=== PATIENT | female | born 1980 | race Caucasian/White ===

== ENCOUNTER 2020-01-12 07:36 | Outpatient (REF) | payer OTHER, SELFPAY | END 2020-01-12 07:37 | disposition home or self-care (01) | LOC: HO.LAB 07:36 | PROVIDERS: Visit Provider Internal Medicine | DX: Z20.828 Contact with and (suspected) exposure to other viral communicable diseases (principal) | CPT/HCPCS: C9803; U0003 ==

== ENCOUNTER 2022-01-04 15:19 | Outpatient (REF) | payer OTHER, SELFPAY ==
[2022-01-05 06:03] LABS: CT PCR NOT DETECTED (Not Detect.); NG PCR NOT DETECTED (Not Detect.)
[2022-01-05 12:05] LABS: BV Int Neg Control Negative (Negative)
[2022-01-05 12:06] LABS: BV Int Pos Control Positive (Positive)
[2022-01-13 04:57] LABS: HPV mRNA E6/E7 rflx Not Detected (Not Detected)
== END 2022-01-04 15:20 | disposition home or self-care (01) ==
LOC: HO.LNP 15:19
PROVIDERS: Visit Provider Advanced Practice Midwife
DX: Z01.419 Encounter for gynecological examination (general) (routine) without abnormal findings (principal); Z11.51 Encounter for screening for human papillomavirus (HPV)
CPT/HCPCS: 87480; 87491; 87510; 87591; 87624; 87660; 88142

== ENCOUNTER 2022-01-21 13:00 | Outpatient (REF) | payer OTHER, SELFPAY ==
--- NOTE | ~2022-01-21 | MM_ITS ---
EXAMINATION: MM SCREENING DIGITAL BREAST TOMOSYNTHESIS, BILATERAL CLINICAL INFORMATION: Screening. Asymptomatic. The lifetime risk of breast cancer based on the Tyrer-Cuzick Model is 13.8%. COMPARISON: Mammography: None TECHNIQUE: Digital breast tomosynthesis is performed in both the craniocaudal and mediolateral oblique views along with computer-aided detection (CAD). Synthesized 2D images are generated from the tomosynthesis. FINDINGS: The breasts are heterogeneously dense, which may obscure small masses (ACR BI-RADS breast composition Category c). There are no significant masses, abnormal calcifications, or other abnormalities. MM/MM tomosynthesis screening BI IMPRESSION: No mammographic evidence of malignancy. ASSESSMENT: BI-RADS 1: Negative RECOMMENDATION: Routine annual mammography screening. This patient's information was entered into a reminder system with a target due date for their next mammogram.
== END 2022-01-21 13:01 | disposition home or self-care (01) ==
LOC: HO.MAMMO 13:00
PROVIDERS: Visit Provider Advanced Practice Midwife
DX: Z12.31 Encounter for screening mammogram for malignant neoplasm of breast (principal)
CPT/HCPCS: 77063; 77067

== ENCOUNTER 2022-02-09 16:11 | Outpatient (REF) | payer OTHER, SELFPAY ==
--- NOTE | ~2022-02-09 | US_ITS ---
EXAMINATION: US PELVIC AND TRANSVAGINAL CLINICAL INFORMATION: Excessive and frequent menstruation. COMPARISON: None TECHNIQUE: Ultrasound of the pelvis is performed using both transabdominal and transvaginal transducers along with Doppler. Transvaginal imaging is performed due to inadequate visualization transabdominally. FINDINGS: UTERUS: The uterus is anteverted and anteflexed measuring 11.0 x 4.3 x 8.1 cm for a volume of 200 mL. Two fundal fibroids are present measuring 4.4 x 5.2 x 5.3 cm and 1.1 x 0.7 x 1.0 cm. The double wall endometrial thickness is 0.7 mm. Cervix was not measured by the household refrigeration mechanic. Multiple nabothian cysts are present within the cervix. ADNEXA: Both ovaries are visualized. There is normal color flow to the adnexa. There is no ovarian torsion. There is no pelvic ascites or fluid collection. Right ovary measures 3.8 x 2.3 x 2.8 cm for a volume of 12.8 mL with multiple follicles seen. Left ovary measures 2.8 x 1.8 x 2.1 cm for a volume of 5.5 mL. US/US pelvic and transvaginal IMPRESSION: Uterine fibroids.
== END 2022-02-09 16:12 | disposition home or self-care (01) ==
LOC: HO.US 16:11
PROVIDERS: Visit Provider Advanced Practice Midwife
DX: N92.0 Excessive and frequent menstruation with regular cycle (principal)
CPT/HCPCS: 76830; 76856

== ENCOUNTER → 2022-02-24 14:58 | Outpatient (BNVA) | payer OTHER, SELFPAY | PROVIDERS: PCP Internal Medicine; Visit Provider Advanced Practice Midwife | DX: Z13.89 Encounter for screening for other disorder (principal) ==

== ENCOUNTER 2022-03-15 10:30 | Outpatient (REF) | payer OTHER, SELFPAY ==
[2022-03-15 10:51] LABS: Hematocrit 33.4 % (37.0-47.0); Hemoglobin 9.9 g/dl (12.0-16.0); Mean Corpuscular HGB Conc 29.6 g/dl (31.0-35.0); Mean Corpuscular Hemoglobin 21.3 pg (27.0-33.0); Mean Platelet Volume 10.5 fL (9.4-12.3); Platelet Count 381 X10*3/uL (160-400); Red Blood Count 4.64 X10*6/uL (4.20-5.50); Red Cell Distribution Width 17.2 % (11.0-16.0); White Blood Count 5.6 X10*3/uL (4.8-10.8)
[2022-03-15 11:45] LABS: Thyroid Stimulating Hormone 0.33 uIU/mL (0.32-4.0)
== END 2022-03-15 10:31 | disposition home or self-care (01) ==
LOC: HO.LAB 10:30
PROVIDERS: PCP Internal Medicine; Visit Provider Advanced Practice Midwife
DX: N92.0 Excessive and frequent menstruation with regular cycle (principal)
CPT/HCPCS: 36415; 84443; 85027

== ENCOUNTER 2023-01-27 07:55 | Outpatient (REF) | payer OTHER, SELFPAY | END 2023-01-27 07:56 | disposition home or self-care (01) | LOC: HO.MAMMO 07:55 | PROVIDERS: PCP Internal Medicine; Visit Provider Internal Medicine | DX: Z12.31 Encounter for screening mammogram for malignant neoplasm of breast (principal) | CPT/HCPCS: 77063; 77067 ==

== ENCOUNTER → 2023-01-27 08:00 | Outpatient (BNV) | payer OTHER, SELFPAY | PROVIDERS: PCP Internal Medicine; Visit Provider Radiology Diagnostic Radiology | DX: Z12.31 Encounter for screening mammogram for malignant neoplasm of breast (principal) | CPT/HCPCS: 77063; 77067 ==

== ENCOUNTER 2023-06-21 11:04 | Outpatient (REF) | payer OTHER, SELFPAY ==
--- NOTE | ~2023-06-21 | US_ITS ---
EXAMINATION: US PELVIS CLINICAL INFORMATION: Excessive/frequent menstruation with irregular cycle, fibroids LMP: 4 days ago COMPARISON: Pelvic ultrasound 02/09/2022 TECHNIQUE: Ultrasound of the pelvis is performed using both transabdominal and transvaginal transducers along with Doppler. Transvaginal imaging is performed due to inadequate visualization transabdominally. FINDINGS: Uterus: The uterus is anteverted and measures 11.3 x 8.3 x 9.1 cm. There are 3 fibroids: 2.1 x 2.8 x 2.0 cm exophytic fundal, new 9.0 x 6.4 x 8.5 cm, previously 4.4 x 5.2 x 5.3 cm, posterior left, impinges on the endometrial cavity. 1.1 x 1.2 x 1.1 cm subserosal fibroid in the fundus previously measured 1.1 x 0.7 x 1.0 cm. The endometrial thickness is 1.3 cm. There is limited visualization of the endometrial stripe due to the large fibroids. Trace fluid is seen within the endometrial cavity. The patient is currently menstruating. Adnexa: Both ovaries are visualized. There is normal color flow to the adnexa. There is no ovarian torsion. There is no pelvic ascites or fluid collection. Right ovary measures 3.5 x 2.3 x 2.1 cm. Volume 8.9 mL. Left ovary measures 2.8 x 1.9 x 2.0 cm. Volume 8.4 mL US/US pelvic and transvaginal IMPRESSION: 1. 3 uterine fibroids, one of which is new. 2. Interval enlargement of now 9.0 cm posterior left fibroid which impinges on the endometrial cavity. 3. Normal ovaries.
[2023-06-21 12:07] LABS: Hematocrit 34.9 % (37.0-47.0); Hemoglobin 11.1 g/dl (12.0-16.0); Mean Corpuscular HGB Conc 31.8 g/dl (31.0-35.0); Mean Corpuscular Hemoglobin 26.3 pg (27.0-33.0); Mean Corpuscular Volume 82.7 fL (80.0-98.0); Platelet Count 309 X10*3/uL (160-400); Red Blood Count 4.22 X10*6/uL (4.20-5.50); Red Cell Distribution Width 19.4 % (11.0-16.0); White Blood Count 5.1 X10*3/uL (4.8-10.8)
== END 2023-06-21 11:05 | disposition home or self-care (01) ==
LOC: HO.US 11:04
PROVIDERS: Visit Provider Obstetrics & Gynecology
DX: N93.9 Abnormal uterine and vaginal bleeding, unspecified (principal); N92.0 Excessive and frequent menstruation with regular cycle; D25.0 Submucous leiomyoma of uterus; D25.2 Subserosal leiomyoma of uterus
CPT/HCPCS: 36415; 58100; 76830; 76856; 81025; 85027

== ENCOUNTER 2023-06-21 12:55 | Outpatient (AMB) | payer OTHER, SELFPAY ==
--- NOTE | 2023-06-21 13:03 | MHC.OFFVIS ---
Vital Signs 06/21/23 13:04 Height 5 ft 3 in Weight 185 lb BMI 32.8 BP 114/62 Intake Visit Reasons: heavy menses Wire Spooler Required: No Information Interpreted: non-clinical & clinical Credit Analysis Manager: Credit Analysis Manager Present (Eveline) Allergies No Known Allergies Allergy (Verified 06/21/23 13:04) Is last menstrual period known: Yes Last menstrual period: 06/18/23 Post menopausal: No HPI Comments Details: Presenting complaining of 2 year history of heavy menstrual cycles associated with passage of blood clots and pelvic cramping. The patient gives history of iron transfusion twice at her loan officer with no improvement of her H&H. H&H done today was 11.1/34.9 Pelvic ultrasound done today showed the following: Uterus: The uterus is anteverted and measures 11.3 x 8.3 x 9.1 cm. There are 3 fibroids: 2.1 x 2.8 x 2.0 cm exophytic fundal, new 9.0 x 6.4 x 8.5 cm, previously 4.4 x 5.2 x 5.3 cm, posterior left, impinges on the endometrial cavity. 1.1 x 1.2 x 1.1 cm subserosal fibroid in the fundus previously measured 1.1 x 0.7 x 1.0 cm. The endometrial thickness is 1.3 cm. There is limited visualization of the endometrial stripe due to the large fibroids. Trace fluid is seen within the endometrial cavity. The patient is currently menstruating. Adnexa: Both ovaries are visualized. There is normal color flow to the adnexa. There is no ovarian torsion. There is no pelvic ascites or fluid collection. Right ovary measures 3.5 x 2.3 x 2.1 cm. Volume 8.9 mL. Left ovary measures 2.8 x 1.9 x 2.0 cm. Volume 8.4 mL Last mammogram done in 02/05 was BI-RADS 1 Last co testing done 01/05 was negative PFSH Medical History Asthma Family History Father Cancer Female Reproductive History Menstrual Age of Menarche: 14 Date of last menstrual period: 06/18/23 control method: none Date of last pap smear: 01/05/22 (negative) History of abnormal pap smear: No Review of Systems Const All systems reviewed & are unremarkable except as noted in HPI and below Physical Exam Vital Signs: Last Vital Signs BP 114/62 06/21/23 13:04 BMI result Body Mass Index 32.8 General: Yes no CVA tenderness External Female Exam: normal external appearance and normal appearance of the urethra Speculum Exam - Vagina: normal appearance of the vagina, normal palpation, no lesions and no masses Speculum Exam - Cervix: normal appearance of the cervix, normal palpation, no lesions, no masses and nontender Bimanual exam- vagina & uterus: normal bimanual exam, normal palpation, uterine size normal, normal palpation, No Cervical tenderness present, non-tender and enlarged Bimanual Exam- Adnexa, other: normal adnexae Back/Spine/Pelvis Back: no CVA tenderness Office Procedures Endometrial Biopsy Details: The patient was counseled regarding the indication and benefits of endometrial sampling to rule out endometrial pathology including not limited to endometrial hyperplasia or endometrial cancer and others; The alternatives (Either do nothing vs. hysteroscopy D&C) & the risks were discussed with the patient including but not limited: pain, uterine perforation, bleeding, infection, possible injury to bladder, bowel, ureter, possible need for blood transfusion with all its possible risks. The patient verbalized understanding all questions answered and signed consent. Urine test done in the office was negative The patient was placed into the dorsal lithotomy position; a speculum was inserted in the vagina. Using aseptic technique for the procedure, the cervix was cleansed with Betadine. The anterior lip of the cervix was grasped with a single tooth tenaculum. The uterus was sounded to 7 cm with a 4 mm Pipelle was used. Tissues samples were obtained and placed in formalin, in a patient labeled container and sent to the pathology department. At the end of the procedure, there was minimal bleeding noted The patient tolerated the procedure well and was discharged in good condition with the following instructions: Nothing in the vagina until the bleeding stops. No sex until the bleeding stops, to call if any of the following occurs: fever (>100.4), flu-like symptoms, abdominal pain, heavy bleeding, four smelling vaginal discharge. The patient was instructed to schedule a Follow up appointment in 2 weeks to discuss pathology results of the biopsy and treatment options. This note was generated with a voice recognition program. Some errors may have been overlooked during the review of this note. Sometimes these errors may affect the content or meaning of a given sentence. [id number] Biopsy Results AMB Test Urine AMB Test Urine Negative Last Edit by RIKY Lowry on 06/21/23 13:42 Assessment & Plan Assessment & Plan (1) Abnormal uterine bleeding: Comment: With anemia Code(s): N93.9 - Abnormal uterine and vaginal bleeding, unspecified Category: Medical Plan: Discussed with the patient the results of her H&H 11.1/34.9 Pelvic ultrasound done today GC and chlamydia taken TSH, HCG, prolactin, ordered. Discussed with the patient the different causes of abnormal bleeding including thyroid disorders, uterine and ovarian pathology, endometrial hyperplasia, carcinoma and other potential causes. Discussed with the patient the work up including CBC (to r/o anemia), TSH, prolactin, pelvic Ultrasound, endometrial biopsy to r/o endometrial pathology. EMB done, see procedure note All questions answered and the patient verbalized understanding. Instructions given the patient to schedule a 2 week follow-up appointment to discuss options of treatment (2) Fibroid uterus: Comment: Rapidly enlarging Largest is Submucosal 9 cm in size Code(s): D25.9 - Leiomyoma of uterus, unspecified Category: Medical Plan: Discussed with the patient the results of the ultrasound and the findings showing multiple myomas in 1 myoma seems to be rapidly enlarging in size, increased from 5.3-9 cm in around 14-15 months. Discussed with the patient risk of myosarcoma and symptoms that are caused by myomas including but not limited to pelvic pain, pressure symptoms, abnormal uterine bleeding. In addition discussed with the patient options of treatment for myomas including: Serial ultrasounds periodically to follow-up on the size of the myoma while targeting the treatment against fibroids related symptoms ( control pills, Mirena IUD, progesterone treatment, GnRH agonist/antagonist, uterine artery embolization or endometrial ablation) versus surgical treatment including hysterectomy . All pros and cons, risks and benefits of all options were discussed with the patient. The patient understands that delay in surgical treatment in case of myosarcoma can affect her prognosis, after further discussion, the patient seemed leaning more towards surgical management but will make her decision after discussing it further next visit after EMB results is out. Orders: Orders CT NG by PCR Today N92.0 - Excessive and frequent menstruation with regular cycle Surgical Today N92.0 - Excessive and frequent menstruation with regular cycle AMB Endometrial Biopsy Today N93.9 - Abnormal uterine and vaginal bleeding, unspecified AMB HCG Urine Test Today Z32.02 - Encounter for test, result negative TSH reflex Free T4 Today N93.9 - Abnormal uterine and vaginal bleeding, unspecified Prolactin Today N93.9 - Abnormal uterine and vaginal bleeding, unspecified HCG Quantitative Today N93.9 - Abnormal uterine and vaginal bleeding, unspecified Coding Level of Care Code Est Pt Level 3 (59136) Diagnoses Abnormal uterine bleeding N93.9 Fibroid uterus D25.9 CPT Codes Endometrial Biopsy - CPT: 31067-[id number] Biopsy ([id number])
[2023-06-21 13:04] VITALS: BP 114/62; BMI 32.8
== END 2023-06-21 13:43 | disposition home or self-care (01) ==
PROVIDERS: PCP Internal Medicine; Visit Provider Obstetrics & Gynecology
DX: D25.9 Leiomyoma of uterus, unspecified (principal); N93.9 Abnormal uterine and vaginal bleeding, unspecified; Z32.02 Encounter for pregnancy test, result negative
CPT/HCPCS: 58100; 99213

== ENCOUNTER 2023-06-21 13:40 | Outpatient (REF) | payer OTHER, SELFPAY ==
[2023-06-22 06:36] LABS: CT PCR NOT DETECTED (Not Detect.); NG PCR NOT DETECTED (Not Detect.)
== END 2023-06-21 13:41 | disposition home or self-care (01) ==
LOC: HO.LNP 13:40
PROVIDERS: Visit Provider Obstetrics & Gynecology
DX: N92.0 Excessive and frequent menstruation with regular cycle (principal)
CPT/HCPCS: 0353U; 88305

== ENCOUNTER 2023-06-27 08:49 | Outpatient (AMB) | payer OTHER, SELFPAY ==
--- NOTE | 2023-06-27 09:04 | A.OFFVIS_ITS ---
Vital Signs 06/27/23 09:08 Height 5 ft 3 in Weight 183 lb BMI 32.4 BP 118/74 Intake Visit Reasons: EMB follow up Poultryman Required: No Information Interpreted: non-clinical & clinical Accompanied by: Self / Same As Patient Allergies No Known Allergies Allergy (Verified 06/27/23 09:09) HPI Comments Details: Presenting for follow-up after endometrial biopsy regarding her 2 year history of heavy menstrual cycles associated with passage of blood clots and pelvic cramping. The patient the patient received iron transfusion twice at her parent trainer with no improvement of her H&H. H&H done today was 11.1/34.9 Pelvic ultrasound done today showed the following: Uterus: The uterus is anteverted and measures 11.3 x 8.3 x 9.1 cm. There are 3 fibroids: 2.1 x 2.8 x 2.0 cm exophytic fundal, new 9.0 x 6.4 x 8.5 cm, previously 4.4 x 5.2 x 5.3 cm, posterior left, impinges on the endometrial cavity. 1.1 x 1.2 x 1.1 cm subserosal fibroid in the fundus previously measured 1.1 x 0.7 x 1.0 cm. The endometrial thickness is 1.3 cm. There is limited visualization of the endometrial stripe due to the large fibroids. Trace fluid is seen within the endometrial cavity. The patient is currently menstruating. Adnexa: Both ovaries are visualized. There is normal color flow to the adnexa. There is no ovarian torsion. There is no pelvic ascites or fluid collection. Right ovary measures 3.5 x 2.3 x 2.1 cm. Volume 8.9 mL. Left ovary measures 2.8 x 1.9 x 2.0 cm. Volume 8.4 mL Endometrial biopsy pathology report showed the following: Endometrium, biopsy: - Fragments of benign endometrium with lytic changes. - Inflamed endocervical and cervical transformation zone mucosa with reactive changes. - No atypia identified. Last mammogram done in 02/05 was BI-RADS 1 Last co testing done 01/05 was negative PFSH Medical History Asthma Family History Father Cancer Female Reproductive History Menstrual Age of Menarche: 14 Review of Systems Const All systems reviewed & are unremarkable except as noted in HPI and below Reports as per HPI and Reports no additional complaints GI Reports no additional complaints Reports no additional complaints Physical Exam Vital Signs: Last Vital Signs BP 118/74 06/27/23 09:08 BMI result Body Mass Index 32.4 Assessment & Plan Assessment & Plan (1) Abnormal uterine bleeding: Comment: With anemia Code(s): N93.9 - Abnormal uterine and vaginal bleeding, unspecified Category: Medical Plan: See discussion below (2) Fibroid uterus: Comment: Rapidly enlarging Largest is Submucosal 9 cm in size Code(s): D25.9 - Leiomyoma of uterus, unspecified Category: Medical Plan: Discussed with the patient the results of the ultrasound and the size of the myomas. Discussed with the patient risk of myosarcoma and symptoms that are caused by myomas including but not limited to pelvic pain, pressure symptoms, abnormal uterine bleeding. In addition discussed with the patient options of treatment for myomas including: Serial ultrasounds periodically to follow-up on the size of the myoma while targeting the treatment against fibroids related symptoms ( control pills, Mirena IUD, progesterone treatment, GnRH agonist/antagonist, uterine artery embolization or endometrial ablation) versus surgical treatment including hysterectomy . Discussed with the patient a lot of the above-mentioned medical/minimally invasive treatment options are not appropriate given the large submucosal myoma . All pros and cons, risks and benefits of all options were discussed with the patient. The patient decided to proceed with a hysterectomy. Discussed with the patient the different types of hysterectomies including, vaginal, laparoscopic assisted vaginal, robotic assisted laparoscopic,& abdominal with bilateral salpingectomies. All pros, cons, r/b of each approach were discussed the patient including evidence that morbidity is less and recovery is shorter with minimally invasive approaches to hysterectomy. Explained to the patient she might not be a good candidate for minimally invasive hysterectomy given the size of the fibroid. In addition, discussed with the patient that the finding of large and rapidly growing uterine myoma of 9 cm in size and that the lack of availability of Gyne Onc service at [facility] in case it is needed intraoperatively for any suspicious findings. Furthermore, explained to the patient the lack of availability of the robot [employer] robot and/or minimally invasive publicity expert specialist at [facility]. For all the above reasons, I recommended referral to a tertiary care center, where more resources /higher level [facility] are available[facility]. All questions answered, the patient verbalized understanding and agreed with the plan. Instructed the patient to call our office back in case a referral appointment is not scheduled, missed or canceled so that we will assist on rescheduling another appointment, the patient verbalized understanding agreed with the plan. Coding Level of Care Code Est Pt Level 3 (14352) Diagnoses Abnormal uterine bleeding N93.9 Fibroid uterus D25.9
[2023-06-27 09:08] VITALS: BP 118/74; BMI 32.4
== END 2023-06-27 09:42 | disposition home or self-care (01) ==
PROVIDERS: PCP Internal Medicine; Visit Provider Obstetrics & Gynecology
DX: N93.9 Abnormal uterine and vaginal bleeding, unspecified (principal); D25.9 Leiomyoma of uterus, unspecified
CPT/HCPCS: 99213

== ENCOUNTER → 2023-06-27 08:49 | Outpatient (BNVA) | payer OTHER, SELFPAY | PROVIDERS: PCP Internal Medicine; Visit Provider Obstetrics & Gynecology ==

== ENCOUNTER 2024-02-16 15:24 | Outpatient (REF) | payer OTHER, SELFPAY ==
--- NOTE | ~2024-02-16 | MM_ITS ---
EXAMINATION: MM SCREENING DIGITAL BREAST TOMOSYNTHESIS, BILATERAL CLINICAL INFORMATION: Screening. Asymptomatic. COMPARISON: Mammography: Comparison is made with available priors TECHNIQUE: Digital breast mammography with tomosynthesis is performed in both the craniocaudal and mediolateral oblique views along with computer-aided detection (CAD). FINDINGS: There are scattered areas of fibroglandular density (ACR BI-RADS breast composition Category b). There are no significant masses, abnormal calcifications, or other abnormalities. MM/MM tomosynthesis screening BI IMPRESSION: No mammographic evidence of malignancy. ASSESSMENT: BI-RADS BI-RADS 1 - Negative RECOMMENDATION: Routine annual mammography screening. 1 year F/U This examination should not preclude the clinical evaluation of a suspicious palpable abnormality. This patient's information was entered into a reminder system with a target due date for their next mammogram. Electronically signed by: Amada Joseph DO 02/26/2024 07:04 AM JESSICA
== END 2024-02-16 15:25 | disposition home or self-care (01) ==
LOC: HO.MAMMO 15:24
PROVIDERS: PCP Internal Medicine; Visit Provider Internal Medicine
DX: Z12.31 Encounter for screening mammogram for malignant neoplasm of breast (principal)
CPT/HCPCS: 77063; 77067

== ENCOUNTER → 2024-02-16 15:30 | Outpatient (BNV) | payer OTHER, SELFPAY | PROVIDERS: PCP Internal Medicine; Visit Provider Internal Medicine | DX: Z12.31 Encounter for screening mammogram for malignant neoplasm of breast (principal) | CPT/HCPCS: 77063; 77067 ==